=== PATIENT | female | born 1985 | race Two or more races ===

== ENCOUNTER 2019-11-17 11:18 | Observation (INO) | payer MEDICAID ==
[2019-11-17] MEDS ORDERED: PREN-96 PO (12:33)
[2019-11-17 13:13] LABS: Basophils # (auto) 0 10 ^3/uL (0-0.2); Basophils % (auto) 0.4 % (0.0-2.0); Eosinophils # (auto) 0.1 10 ^3/uL (0-0.8); Hematocrit 37.9 % (36.0-46.0); Hemoglobin 12.7 g/dL (12.2-16.2); Lymphocytes # (auto) 2.1 10 ^3/uL (0.4-5.4); Lymphocytes % (auto) 19.5 % (10.0-50.0); Mean Corpuscular Hemoglobin 29.6 pg (28.0-32.0); Mean Corpuscular Hgb Conc. 33.5 g/dL (32.0-36.0); Mean Corpuscular Volume 88.3 fL (80.0-100.0); Monocytes # (auto) 0.7 10 ^3/uL (0-1.3); Monocytes % (auto) 6.3 % (0.0-12.0); Neutrophils # (auto) 7.7 10 ^3/uL (1.6-8.6); Neutrophils % (auto) 72.8 % (37.0-80.0); Nucleated Red Blood Cells % 0.1 %; Platelet Count (auto) 320 10^3/uL (140-450); Red Blood Cells 4.29 10^6/uL (4.0-5.20); Red Cell Distribution Width 14.5 % (11.8-14.3); White Blood Cell 10.6 10^3/uL (4.4-10.8)
[2019-11-17 13:26] LABS: Calcium 8.5 mg/dL (8.5-10.1); Potassium 3.8 mmol/L (3.5-5.1)
[2019-11-17 13:28] LABS: INR 0.91 (0.9-1.15); Partial Thromboplastin Time 26.7 sec (23.64-32.05)
[2019-11-17 13:29] LABS: BUN/Creatinine Ratio 14.6; Bilirubin, Total 0.2 mg/dL (0.2-1.0); Total Protein 7.5 g/dL (6.4-8.2); Uric Acid 3.6 mg/dL (2.6-6.0)
[2019-11-17 13:30] LABS: Urine Bacteria FEW /hpf (None Seen); Urine Blood Negative /uL (Negative); Urine Mucus FEW (None Seen); Urine Specific Gravity 1.017 (1.001-1.035); Urine WBC 1 /hpf (0 - 5)
== END 2019-11-17 13:50 | disposition home or self-care (01) | DRG 566 ==
LOC: LDRP 11:18
PROVIDERS: ADMIT Obstetrics & Gynecology; ATTEND Obstetrics & Gynecology
DX: O13.3 Gestational [pregnancy-induced] hypertension without significant proteinuria, third trimester (principal); Z3A.28 28 weeks gestation of pregnancy
CPT/HCPCS: 36415; 59025; 80053; 81001; 81002; 84550; 85025; 85610; 85730; G0378

== ENCOUNTER 2019-11-23 09:00 | Observation (INO) | payer MEDICAID ==
[~2019-11-23 09:00] MED LIST: PREN-96 PO
[2019-11-23 10:18] LABS: Protein, Urine 6.7 mg/dL (0.0-11.9)
[2019-11-23 10:46] LABS: 24 Hr. Total Protein, Urine 241.2 mg/24 Hr (<149.1)
== END 2019-11-23 11:05 | disposition home or self-care (01) | DRG 566 ==
LOC: LDRP 09:00
PROVIDERS: ADMIT Obstetrics & Gynecology; ATTEND Obstetrics & Gynecology
DX: O13.3 Gestational [pregnancy-induced] hypertension without significant proteinuria, third trimester (principal); Z3A.29 29 weeks gestation of pregnancy
CPT/HCPCS: 59025; 81002; 84156; G0378

== ENCOUNTER 2019-11-29 10:28 | Observation (INO) | payer MEDICAID ==
[2019-11-29 12:37] LABS: Basophils # (auto) 0 10 ^3/uL (0-0.2); Basophils % (auto) 0.2 % (0.0-2.0); Eosinophils # (auto) 0.1 10 ^3/uL (0-0.8); Eosinophils % (auto) 0.7 % (0.0-7.0); Hematocrit 38.3 % (36.0-46.0); Hemoglobin 12.8 g/dL (12.2-16.2); Lymphocytes # (auto) 1.9 10 ^3/uL (0.4-5.4); Lymphocytes % (auto) 17.8 % (10.0-50.0); Mean Corpuscular Hemoglobin 29.4 pg (28.0-32.0); Mean Corpuscular Hgb Conc. 33.5 g/dL (32.0-36.0); Mean Corpuscular Volume 87.7 fL (80.0-100.0); Monocytes # (auto) 0.6 10 ^3/uL (0-1.3); Neutrophils % (auto) 75.3 % (37.0-80.0); Platelet Count (auto) 306 10^3/uL (140-450); Red Blood Cells 4.37 10^6/uL (4.0-5.20); White Blood Cell 10.6 10^3/uL (4.4-10.8)
[2019-11-29 12:46] LABS: INR 0.9 (0.9-1.15); Partial Thromboplastin Time 26.3 sec (23.64-32.05)
[2019-11-29 13:02] LABS: Albumin 2.9 g/dL (3.4-5.0); Calcium 8.6 mg/dL (8.5-10.1); Potassium 4.1 mmol/L (3.5-5.1)
[2019-11-29 13:05] LABS: BUN/Creatinine Ratio 15.2; Bilirubin, Total 0.2 mg/dL (0.2-1.0); Total Protein 7.2 g/dL (6.4-8.2); Uric Acid 3.3 mg/dL (2.6-6.0)
== END 2019-11-29 12:22 | disposition home or self-care (01) | DRG 566 ==
LOC: LDRP 10:28
PROVIDERS: ADMIT Specialist; ATTEND Specialist
DX: O13.3 Gestational [pregnancy-induced] hypertension without significant proteinuria, third trimester (principal); Z3A.30 30 weeks gestation of pregnancy
CPT/HCPCS: 36415; 76818; 80053; 81002; 84550; 85025; 85610; 85730; G0378

== ENCOUNTER 2019-12-01 08:56 | Observation (INO) | payer MEDICAID | END 2019-12-01 11:00 | disposition home or self-care (01) | DRG 566 | LOC: LDRP 08:56 | PROVIDERS: ADMIT Specialist; ATTEND Specialist | DX: O13.9 Gestational [pregnancy-induced] hypertension without significant proteinuria, unspecified trimester (principal); Z3A.00 Weeks of gestation of pregnancy not specified | CPT/HCPCS: 59025; 76818; 81002; G0378 ==

== ENCOUNTER 2019-12-01 17:53 | Observation (INO) | payer MEDICAID ==
[2019-12-01] MEDS ORDERED: BETAMETHASONE ACET (6MG/ML) 5ML VIAL IM ONE (18:45)
== END 2019-12-01 20:47 | disposition home or self-care (01) | DRG 566 ==
LOC: LDRP 17:53
PROVIDERS: ADMIT Specialist; ATTEND Specialist
DX: O13.3 Gestational [pregnancy-induced] hypertension without significant proteinuria, third trimester (principal); Z3A.30 30 weeks gestation of pregnancy
CPT/HCPCS: 59025; 76815; 81002; 96372; G0378; J0702

== ENCOUNTER 2019-12-02 20:40 | Observation (INO) | payer MEDICAID ==
[~2019-12-02] VITALS: Ht 170.2 cm; Wt 106.6 kg
[2019-12-02] MEDS ORDERED: BETAMETHASONE ACET (6MG/ML) 5ML VIAL IM ONE (21:00)
== END 2019-12-02 21:50 | disposition home or self-care (01) | DRG 563 ==
LOC: LDRP 20:40
PROVIDERS: ADMIT Obstetrics & Gynecology; ATTEND Obstetrics & Gynecology
DX: O60.03 Preterm labor without delivery, third trimester (principal); Z3A.30 30 weeks gestation of pregnancy
CPT/HCPCS: 59025; 81002; 96372; G0378

== ENCOUNTER 2019-12-06 08:38 | Observation (INO) | payer MEDICAID | END 2019-12-06 11:25 | disposition home or self-care (01) | DRG 566 | LOC: LDRP 08:38 | PROVIDERS: ADMIT Specialist; ATTEND Specialist | DX: O13.3 Gestational [pregnancy-induced] hypertension without significant proteinuria, third trimester (principal); Z3A.31 31 weeks gestation of pregnancy | CPT/HCPCS: 76817; 76818; G0378; 59025; 81002 ==

== ENCOUNTER 2019-12-09 09:09 | Observation (INO) | payer MEDICAID | END 2019-12-09 10:16 | disposition home or self-care (01) | DRG 566 | LOC: LDRP 09:09 | PROVIDERS: ADMIT Specialist; ATTEND Specialist | DX: O13.3 Gestational [pregnancy-induced] hypertension without significant proteinuria, third trimester (principal); Z3A.31 31 weeks gestation of pregnancy | CPT/HCPCS: 59025; 76818; 81002; G0378 ==

== ENCOUNTER 2019-12-13 08:35 | Observation (INO) | payer MEDICAID ==
[~2019-12-13] VITALS: Ht 170.2 cm; Wt 98.4 kg
== END 2019-12-13 11:00 | disposition home or self-care (01) | DRG 566 ==
LOC: LDRP 08:35
PROVIDERS: ADMIT Obstetrics & Gynecology; ATTEND Obstetrics & Gynecology
DX: O13.3 Gestational [pregnancy-induced] hypertension without significant proteinuria, third trimester (principal); Z3A.36 36 weeks gestation of pregnancy
CPT/HCPCS: 59025; 76818; 81002; G0378

== ENCOUNTER 2019-12-14 15:20 | Observation (INO) | payer MEDICAID ==
[2019-12-14 15:59] LABS: Basophils # (auto) 0 10 ^3/uL (0-0.2); Basophils % (auto) 0.2 % (0.0-2.0); Eosinophils # (auto) 0.1 10 ^3/uL (0-0.8); Eosinophils % (auto) 0.9 % (0.0-7.0); Hematocrit 36.9 % (36.0-46.0); Hemoglobin 12.6 g/dL (12.2-16.2); Lymphocytes % (auto) 18.2 % (10.0-50.0); Mean Corpuscular Hemoglobin 29.7 pg (28.0-32.0); Mean Corpuscular Hgb Conc. 34.1 g/dL (32.0-36.0); Mean Corpuscular Volume 87.3 fL (80.0-100.0); Monocytes # (auto) 0.7 10 ^3/uL (0-1.3); Monocytes % (auto) 5.9 % (0.0-12.0); Neutrophils # (auto) 8.4 10 ^3/uL (1.6-8.6); Neutrophils % (auto) 74.8 % (37.0-80.0); Nucleated Red Blood Cells % 0.1 %; Platelet Count (auto) 262 10^3/uL (140-450); Red Blood Cells 4.23 10^6/uL (4.0-5.20); Red Cell Distribution Width 14.3 % (11.8-14.3); White Blood Cell 11.2 10^3/uL (4.4-10.8)
[2019-12-14 16:13] LABS: INR 0.91 (0.9-1.15); Partial Thromboplastin Time 26.7 sec (23.64-32.05)
[2019-12-14 16:19] LABS: Albumin 2.9 g/dL (3.4-5.0); Calcium 8.7 mg/dL (8.5-10.1); Potassium 3.7 mmol/L (3.5-5.1); Uric Acid 3.2 mg/dL (2.6-6.0)
[2019-12-14 16:22] LABS: BUN/Creatinine Ratio 20.4; Bilirubin, Total 0.2 mg/dL (0.2-1.0)
[2019-12-14 17:00] LABS: Urine Bacteria MANY /hpf (None Seen); Urine Blood 1+ /uL (Negative); Urine Mucus FEW (None Seen); Urine Specific Gravity 1.013 (1.001-1.035); Urine WBC 9 /hpf (0 - 5)
== END 2019-12-14 17:15 | disposition home or self-care (01) | DRG 566 ==
LOC: LDRP 15:20
PROVIDERS: ADMIT Specialist; ATTEND Specialist
DX: O13.3 Gestational [pregnancy-induced] hypertension without significant proteinuria, third trimester (principal); Z3A.36 36 weeks gestation of pregnancy
CPT/HCPCS: 36415; 59025; 80053; 81001; 81002; 84550; 85025; 85610; 85730; G0378

== ENCOUNTER 2019-12-17 14:30 | Observation (INO) | payer MEDICAID | END 2019-12-17 15:30 | disposition home or self-care (01) | DRG 566 | LOC: LDRP 14:30 | PROVIDERS: ADMIT Specialist; ATTEND Specialist | DX: O13.3 Gestational [pregnancy-induced] hypertension without significant proteinuria, third trimester (principal); Z3A.33 33 weeks gestation of pregnancy | CPT/HCPCS: 59025; 76818; 81002; G0378 ==

== ENCOUNTER 2019-12-21 14:12 | Observation (INO) | payer MEDICAID | END 2019-12-21 15:45 | disposition home or self-care (01) | DRG 566 | LOC: LDRP 14:12 | PROVIDERS: ADMIT Specialist; ATTEND Specialist | DX: O13.3 Gestational [pregnancy-induced] hypertension without significant proteinuria, third trimester (principal); Z3A.33 33 weeks gestation of pregnancy | CPT/HCPCS: 59025; 76818; 81002; G0378 ==

== ENCOUNTER 2019-12-25 12:05 | Observation (INO) | payer MEDICAID ==
[~2019-12-25] VITALS: Ht 30.5 cm; Wt 0.5 kg
[2019-12-25] MEDS ORDERED: LABE100T4 PO (12:51)
[2019-12-25] MEDS ORDERED: TERBUTALINE SULFATE 1 MG/ML 1ML VIAL SC ONE (13:45)
== END 2019-12-25 14:50 | disposition home or self-care (01) | DRG 566 ==
LOC: LDRP 12:05
PROVIDERS: ADMIT Obstetrics & Gynecology; ATTEND Obstetrics & Gynecology
DX: O13.3 Gestational [pregnancy-induced] hypertension without significant proteinuria, third trimester (principal); Z3A.34 34 weeks gestation of pregnancy
CPT/HCPCS: 59025; 76818; 81002; 96372; G0378; J3105

== ENCOUNTER 2019-12-28 14:16 | Observation (INO) | payer MEDICAID ==
[~2019-12-28 14:16] MED LIST changes: +LABE100T4 PO
== END 2019-12-28 15:55 | disposition home or self-care (01) | DRG 566 ==
LOC: LDRP 14:16
PROVIDERS: ADMIT Obstetrics & Gynecology; ATTEND Obstetrics & Gynecology
DX: O13.3 Gestational [pregnancy-induced] hypertension without significant proteinuria, third trimester (principal); Z3A.34 34 weeks gestation of pregnancy
CPT/HCPCS: 59025; 76818; 81002; G0378

== ENCOUNTER 2020-01-04 10:18 | Observation (INO) | payer MEDICAID ==
[2020-01-04 12:04] LABS: Basophils # (auto) 0 10 ^3/uL (0-0.2); Basophils % (auto) 0.2 % (0.0-2.0); Eosinophils # (auto) 0.1 10 ^3/uL (0-0.8); Eosinophils % (auto) 1.1 % (0.0-7.0); Hematocrit 39.2 % (36.0-46.0); Lymphocytes # (auto) 1.7 10 ^3/uL (0.4-5.4); Lymphocytes % (auto) 18.4 % (10.0-50.0); Mean Corpuscular Hemoglobin 29.2 pg (28.0-32.0); Mean Corpuscular Hgb Conc. 33.2 g/dL (32.0-36.0); Mean Corpuscular Volume 87.8 fL (80.0-100.0); Monocytes # (auto) 0.7 10 ^3/uL (0-1.3); Monocytes % (auto) 7.4 % (0.0-12.0); Neutrophils # (auto) 6.9 10 ^3/uL (1.6-8.6); Neutrophils % (auto) 72.9 % (37.0-80.0); Nucleated Red Blood Cells % 0.1 %; Platelet Count (auto) 269 10^3/uL (140-450); Red Blood Cells 4.47 10^6/uL (4.0-5.20); Red Cell Distribution Width 14.7 % (11.8-14.3); White Blood Cell 9.4 10^3/uL (4.4-10.8)
[2020-01-04 12:18] LABS: INR 0.91 (0.9-1.15); Partial Thromboplastin Time 27.5 sec (23.64-32.05)
[2020-01-04 12:20] LABS: Urine Bacteria FEW /hpf (None Seen); Urine Blood Negative /uL (Negative); Urine Mucus FEW (None Seen); Urine Specific Gravity 1.012 (1.001-1.035); Urine WBC 1 /hpf (0 - 5)
[2020-01-04 12:23] LABS: Albumin 2.7 g/dL (3.4-5.0); Calcium 8.7 mg/dL (8.5-10.1); Potassium 3.9 mmol/L (3.5-5.1); Uric Acid 3.7 mg/dL (2.6-6.0)
[2020-01-04 12:26] LABS: BUN/Creatinine Ratio 18.6; Bilirubin, Total 0.2 mg/dL (0.2-1.0); Total Protein 6.9 g/dL (6.4-8.2)
== END 2020-01-04 12:44 | disposition home or self-care (01) | DRG 566 ==
LOC: LDRP 10:18
PROVIDERS: ADMIT Obstetrics & Gynecology; ATTEND Obstetrics & Gynecology
DX: O13.3 Gestational [pregnancy-induced] hypertension without significant proteinuria, third trimester (principal); O09.523 Supervision of elderly multigravida, third trimester; Z3A.35 35 weeks gestation of pregnancy
CPT/HCPCS: 36415; 59025; 76818; 80053; 81001; 81002; 84550; 85025; 85610; 85730; G0378

== ENCOUNTER 2020-01-07 10:09 | Observation (INO) | payer MEDICAID ==
[2020-01-07] MEDS ORDERED: LACTATED RINGER'S 1,000 ML IV ONE (12:00)
== END 2020-01-07 13:07 | disposition home or self-care (01) | DRG 566 ==
LOC: LDRP 10:09
PROVIDERS: ADMIT Specialist; ATTEND Specialist
DX: O13.3 Gestational [pregnancy-induced] hypertension without significant proteinuria, third trimester (principal); Z3A.36 36 weeks gestation of pregnancy
CPT/HCPCS: 59025; 76818; 81002; 96360; G0378

== ENCOUNTER 2020-01-08 17:06 | Observation (INO) | payer MEDICAID | END 2020-01-08 19:00 | disposition home or self-care (01) | DRG 566 | LOC: LDRP 17:06 | PROVIDERS: ADMIT Specialist; ATTEND Specialist | DX: O13.3 Gestational [pregnancy-induced] hypertension without significant proteinuria, third trimester (principal); O41.03X0 Oligohydramnios, third trimester, not applicable or unspecified; O34.219 Maternal care for unspecified type scar from previous cesarean delivery; Z3A.36 36 weeks gestation of pregnancy | CPT/HCPCS: 59025; 76818; 81002; G0378 ==

== ENCOUNTER 2020-01-11 08:08 | Observation (INO) | payer MEDICAID | END 2020-01-11 09:49 | disposition home or self-care (01) | DRG 566 | LOC: LDRP 08:08 | PROVIDERS: ADMIT Obstetrics & Gynecology; ATTEND Obstetrics & Gynecology | DX: O13.3 Gestational [pregnancy-induced] hypertension without significant proteinuria, third trimester (principal); Z3A.36 36 weeks gestation of pregnancy; Z98.891 History of uterine scar from previous surgery | CPT/HCPCS: 59025; 76818; 81002; G0378 ==

== ENCOUNTER 2020-01-14 07:02 | Observation (INO) | payer MEDICAID | END 2020-01-14 12:03 | disposition home or self-care (01) | DRG 566 | LOC: LDRP 10:13 | PROVIDERS: ADMIT Specialist; ATTEND Specialist | DX: O13.3 Gestational [pregnancy-induced] hypertension without significant proteinuria, third trimester (principal); Z3A.37 37 weeks gestation of pregnancy | CPT/HCPCS: 59025; 76818; 81002; G0378 ==

== ENCOUNTER 2020-01-18 09:26 | Observation (INO) | payer MEDICAID | END 2020-01-18 12:20 | disposition home or self-care (01) | DRG 566 | LOC: LDRP 09:26 | PROVIDERS: ADMIT Obstetrics & Gynecology; ATTEND Obstetrics & Gynecology | DX: O13.3 Gestational [pregnancy-induced] hypertension without significant proteinuria, third trimester (principal); Z3A.37 37 weeks gestation of pregnancy | CPT/HCPCS: 59025; 76818; 81002; G0378 ==

== ENCOUNTER 2020-01-19 10:37 | Observation (INO) | payer MEDICAID | END 2020-01-19 11:35 | disposition home or self-care (01) | DRG 566 | LOC: LDRP 10:37 | PROVIDERS: ADMIT Specialist; ATTEND Specialist | DX: O13.3 Gestational [pregnancy-induced] hypertension without significant proteinuria, third trimester (principal); Z3A.37 37 weeks gestation of pregnancy | CPT/HCPCS: 59025; 81002; G0378 ==

== ENCOUNTER 2020-01-24 08:14 | Observation (INO) | payer MEDICAID | END 2020-01-24 12:13 | disposition home or self-care (01) | DRG 566 | LOC: LDRP 08:14 | PROVIDERS: ADMIT Specialist; ATTEND Specialist | DX: O13.3 Gestational [pregnancy-induced] hypertension without significant proteinuria, third trimester (principal); Z3A.38 38 weeks gestation of pregnancy | CPT/HCPCS: 59025; 76818; 81002; G0378 ==

== ENCOUNTER 2020-01-27 11:07 | Observation (INO) | payer MEDICAID ==
--- NOTE | 2020-01-27 12:50 | NUR ---
COVID 19 testing performed. PT tolerated well. Test send to lab immediately.
== END 2020-01-27 12:58 | disposition home or self-care (01) | DRG 861 ==
LOC: LDRP 11:07
PROVIDERS: ADMIT Specialist; ATTEND Specialist
DX: Z03.818 Encounter for observation for suspected exposure to other biological agents ruled out (principal); Z3A.38 38 weeks gestation of pregnancy
CPT/HCPCS: 59025; 76818; 81002; G0378; U0003

== ENCOUNTER 2020-01-28 04:06 | Inpatient (IN) | payer MEDICAID ==
[2020-01-28] VITALS (12 sets, daily range): BP systolic 103–141; BP diastolic 65–85
[~2020-01-28] VITALS: Ht 172.7 cm; Wt 104.3 kg
[2020-01-28 05:38] LABS: Basophils # (auto) 0 10 ^3/uL (0-0.2); Basophils % (auto) 0.3 % (0.0-2.0); Eosinophils # (auto) 0.1 10 ^3/uL (0-0.8); Eosinophils % (auto) 1.3 % (0.0-7.0); Hematocrit 35.9 % (36.0-46.0); Hemoglobin 12.3 g/dL (12.2-16.2); Lymphocytes # (auto) 2.2 10 ^3/uL (0.4-5.4); Lymphocytes % (auto) 22.1 % (10.0-50.0); Mean Corpuscular Hemoglobin 30.5 pg (28.0-32.0); Mean Corpuscular Hgb Conc. 34.4 g/dL (32.0-36.0); Mean Corpuscular Volume 88.8 fL (80.0-100.0); Monocytes # (auto) 0.7 10 ^3/uL (0-1.3); Monocytes % (auto) 6.8 % (0.0-12.0); Neutrophils % (auto) 69.5 % (37.0-80.0); Nucleated Red Blood Cells % 0.1 %; Platelet Count (auto) 221 10^3/uL (140-450); Red Blood Cells 4.04 10^6/uL (4.0-5.20); Red Cell Distribution Width 15.5 % (11.8-14.3)
[2020-01-28 05:47] LABS: Urine Bacteria FEW /hpf (None Seen); Urine Blood Negative /uL (Negative); Urine Specific Gravity 1.013 (1.001-1.035); Urine WBC 2 /hpf (0 - 5)
[2020-01-28 05:56] LABS: INR 0.91 (0.9-1.15); Partial Thromboplastin Time 25.6 sec (23.64-32.05)
[2020-01-28 06:16] LABS: Albumin 2.6 g/dL (3.4-5.0); Calcium 8.3 mg/dL (8.5-10.1); Potassium 3.6 mmol/L (3.5-5.1)
[2020-01-28 06:20] LABS: BUN/Creatinine Ratio 26.1; Bilirubin, Total 0.3 mg/dL (0.2-1.0); Total Protein 6.4 g/dL (6.4-8.2)
[2020-01-28] MEDS ORDERED: SUCCINYLCHOLINE CHLORIDE 20 MG/ML 10ML VIAL IV ONE (07:17)
[2020-01-28] MEDS ORDERED: TETRACAINE 1% INJ 2 ML VIAL IJ ONE (07:18)
[2020-01-28] MEDS ORDERED: MORPHINE SULF(PF) 0.5MG/ML 10ML VIAL ONE (07:53)
[2020-01-28] MEDS ORDERED: fentaNYL CITRATE 100 MCG/2 ML VL ONE (07:53)
[2020-01-28] MEDS ORDERED: CLINDAMYCIN 900MG IV 50 ML IV ONE (08:19)
[2020-01-28] MEDS ORDERED: LACT. RINGERS/OXYTOCIN 20UNITS 1,000 ML IV SCH (09:02)
[2020-01-28] MEDS ORDERED: HYDROmorphone HCL 2 MG/ML VL IV PRN (09:15)
[2020-01-28] MEDS ORDERED: ACETAMINOPHEN IV 1000 MG/100ML (10MG/ML) IV ONE (09:15)
[2020-01-28] MEDS ORDERED: ONDANSETRON HCL 4 MG/2 ML VIAL IV PRN ×2 (09:15→10:00)
[2020-01-28] MEDS ORDERED: ONDANSETRON HCL 4 MG/2 ML VIAL ONE (09:47)
[2020-01-28] MEDS ORDERED: NALOXONE HCL 0.4 MG/ML VIAL IV PRN (10:00)
[2020-01-28] MEDS ORDERED: diphenhdrAMINE HCL 50 MG/1 ML VL IV PRN (10:00)
--- NOTE | 2020-01-28 10:10 | NUR ---
Post Op for LDRP: Received patient from PACU via bed to room . Patient A/A/Ox4, abdominal binder and bilateral SCD's are in place, IV fluids placed on pump and infusing per order, incisional site dressing clean/dry/intact and Croft Catheter to gravity draining clear yellow urine. Incentive Spirometer at bedside and instruction on proper use with return demonstration done by patient.
[2020-01-28] MEDS: KETOROLAC TROMETH 30 MG/ML 1ML VIAL IV SCH ×3 (13:05→23:30)
[2020-01-28] MEDS: LACTATED RINGER'S 1,000 ML IV SCH ×2 (13:08→13:09)
[2020-01-28] MEDS: CLINDAMYCIN 900MG IV 50 ML IV SCH ×2 (15:03→21:43)
--- NOTE | 2020-01-28 21:00 | NUR ---
Ambulation: Pericare performed, clean underpad, gown and underwear provided. SCDs removed, hospital socks provided. Patient OOB with standby assistance by RN. Patient ambulated to bathroom with steady gait where patient washes face. Patient ambulates approx 50 [address] in hallway accompanied by RN. Bed linen changed. Patient ambulated back to bed with steady gait and no distress noted. SCDs applied, patient positions self in bed for comfort. Bed locked in lowest position and call light within reach.
[2020-01-29 03:08] VITALS: BP 121/70
--- NOTE | 2020-01-29 05:30 | NUR ---
Gee catheter dc'd Order to discontinue gee catheter. Gee dc'd with clean technique following deflation of balloon. Patient tolerated well with no complaints of pain. Continue care.
[2020-01-29] MEDS: KETOROLAC TROMETH 30 MG/ML 1ML VIAL IV SCH (05:33)
[2020-01-29] MEDS: CLINDAMYCIN 900MG IV 50 ML IV SCH (05:34)
[2020-01-29] MEDS: LACTATED RINGER'S 1,000 ML IV SCH (05:47)
[2020-01-29 06:06] LABS: RPR Non Reactive (Non Reactive)
[2020-01-29 06:48] VITALS: BP 121/86
[2020-01-29 08:40] LABS: Basophils # (auto) 0 10 ^3/uL (0-0.2); Basophils % (auto) 0.2 % (0.0-2.0); Eosinophils # (auto) 0.1 10 ^3/uL (0-0.8); Eosinophils % (auto) 1.3 % (0.0-7.0); Hematocrit 33.6 % (36.0-46.0); Hemoglobin 11.6 g/dL (12.2-16.2); Lymphocytes # (auto) 1.8 10 ^3/uL (0.4-5.4); Lymphocytes % (auto) 17.4 % (10.0-50.0); Mean Corpuscular Hemoglobin 30.5 pg (28.0-32.0); Mean Corpuscular Hgb Conc. 34.4 g/dL (32.0-36.0); Mean Corpuscular Volume 88.5 fL (80.0-100.0); Monocytes # (auto) 0.7 10 ^3/uL (0-1.3); Monocytes % (auto) 6.6 % (0.0-12.0); Neutrophils # (auto) 7.8 10 ^3/uL (1.6-8.6); Neutrophils % (auto) 74.5 % (37.0-80.0); Platelet Count (auto) 207 10^3/uL (140-450); Red Blood Cells 3.79 10^6/uL (4.0-5.20); Red Cell Distribution Width 15.5 % (11.8-14.3); White Blood Cell 10.5 10^3/uL (4.4-10.8)
[2020-01-29] MEDS ORDERED: SIMETHICONE 80 MG CHEWABLE TABLET PO PRN (09:00)
[2020-01-29] MEDS: DOCUSATE SOD 100 MG CAP PO SCH ×2 (10:23→21:44)
[2020-01-29 11:00] VITALS: BP 120/75
[2020-01-29 15:00] VITALS: BP 123/72
[2020-01-29] MEDS: HYDROcodone-ACET 5/325MG TAB PO PRN (17:27)
[2020-01-29 18:30] VITALS: BP 134/81
[2020-01-29] MEDS: IBUPROFEN 800 MG TAB PO PRN (21:45)
[2020-01-29 22:45] VITALS: BP 129/75
[2020-01-30 03:00] VITALS: BP 121/53
[2020-01-30] MEDS: HYDROcodone-ACET 5/325MG TAB PO PRN ×4 (03:39→23:13)
[2020-01-30] MEDS ORDERED: TETANUS-DIPTH-ACEL PERTUSSIS 0.5ML SYR Tdap IM ONE (06:15)
[2020-01-30 06:46] VITALS: BP 116/72
[2020-01-30] MEDS: IBUPROFEN 800 MG TAB PO PRN ×2 (09:36→18:36)
[2020-01-30] MEDS: DOCUSATE SOD 100 MG CAP PO SCH ×2 (09:36→23:14)
[2020-01-30 10:40] VITALS: BP 119/64
[2020-01-30 15:00] VITALS: BP 119/64
[2020-01-30] MEDS ORDERED: BISACODYL 10 MG RECT SUPP PR ONE (16:15)
--- NOTE | 2020-01-30 17:01 | NUR ---
IV removal IV DC'd with sterile technique, catheter fully intact. Pressure dressing applied to site. Patient tolerated procedure well. Discharged with aftercare instructions per MD. NOTE: Unable to flush IV line.
[2020-01-30 18:30] VITALS: BP 126/71
[2020-01-30 23:10] VITALS: BP 131/88
[2020-01-31] MEDS: IBUPROFEN 800 MG TAB PO PRN (02:54)
[2020-01-31 03:05] VITALS: BP 142/82
[2020-01-31 06:56] VITALS: BP 126/69
--- NOTE | 2020-01-31 09:00 | NUR ---
Discharge: Discharge instructions given as ordered. Pt encouraged to follow up with RN [facility] as instructed. All questions and concerns addressed. Patient verbalized understanding. Medication reconciliation completed and copy given to patient. All required/requested vaccines given and copies of vaccinations given to patient. Patient encouraged to prepare to depart unit.
--- NOTE | 2020-01-31 09:35 | NUR ---
Discharge: Patient taken to vehicle via wheelchair with all personal belongings, accompanied by staff and family member. No distress noted at time of departure, no adverse changes in status since initial assessment.
== END 2020-01-31 09:35 | disposition home or self-care (01) | DRG 540 ==
LOC: LDRP 04:06
PROVIDERS: ADMIT Specialist; ATTEND Specialist
PROC: 0UL70CZ Occlusion of Bilateral Fallopian Tubes with Extraluminal Device, Open Approach (ICD-10-PCS; 2020-01-28)
PROC: 10D00Z1 Extraction of Products of Conception, Low, Open Approach (ICD-10-PCS; principal; 2020-01-28 07:49)
DX: O34.211 Maternal care for low transverse scar from previous cesarean delivery (principal); O13.4 Gestational [pregnancy-induced] hypertension without significant proteinuria, complicating childbirth; O69.81X0 Labor and delivery complicated by cord around neck, without compression, not applicable or unspecified; Z30.2 Encounter for sterilization; Z37.0 Single live birth; Z3A.39 39 weeks gestation of pregnancy; Z88.0 Allergy status to penicillin
CPT/HCPCS: 36415; 80053; 81001; 84112; 85025; 85610; 85730; 86592; 86850; 86900; 86901; 87340; 90715; 94762; 96360; 96361; 96372; 96374; 96375; G0378; J0131; J0330; J1885; J2405; J3490